=== PATIENT | female | born 1930 | race Caucasian/White ===

== ENCOUNTER → 2016-12-28 | Outpatient (CLI) | payer OTHER ==
[~2016-12-28] MED LIST: CLOPIDOGREL BISULFATE 75 MG TABLET ONE; DIAZEPAM 10 MG TABLET. ONE; EPTIFIBATIDE BOLUS 2,000 MCG/ML 10ML VIAL. IV ONE; HEPARIN SODIUM 5,000 UNIT/ML VIAL for PCVC. ONE; IODIXANOL 270 MG/ML 100 ML VIAL. ONE; IV NORMAL SALINE 500ML BAG 0 ML ONE; IV NORMAL SALINE 500ML BAG 500 ML ONE; LIDOCAINE 1% Multi-Dose 20 ML VIAL. ONE; LIDOCAINE 1%/EPI 1:100,000 20 ML VIAL. ONE; MIDAZOLAM HCL/PF 2 MG/2 ML VIAL. ONE; fentaNYL PF VIAL 100 MCG/2 ML VIAL ONE; hydrALAZINE 20 MG/ML VIAL. ONE
--- NOTE | 2016-12-28 16:19 | PCVCINTER ---
EXAM: 1. AORTOGRAM AND BILATERAL LOWER EXTREMITY RUNOFF ANGIOGRAM 2. BILATERAL RENAL ANGIOGRAPHY 3. LEFT SUPERFICIAL FEMORAL ARTERY ARTERY ATHERECTOMY AND STENT PLACEMENT. 4. SECONDARY THROMBECTOMY LEFT SUPERFICIAL FEMORAL ARTERY. 5. DRUG COATED BALLOON ANGIOPLASTY LEFT SUPERFICIAL FEMORAL AND POPLITEAL ARTERY. INDICATION: Peripheral arterial disease. Chronic arterial ischemia both feet. Leg pain. Hypertension. Renal atherosclerosis. PROCEDURE: Procedure and risks of angiography intervention is appropriate including limb loss stroke and were discussed with the patient's family and consent obtained. The patient's right groin was prepped abnormal sterile fashion. IV conscious sedation was used to procedure with appropriate monitoring from 9:00 AM through 10:30 AM. Ultrasound was used to interrogate the right groin and showed the right common femoral artery to be patent. A permanent spot film was obtained. Under ultrasound guidance access into the right common femoral artery was obtained and a 5 Gambian sheath was placed. Through this a 5 Gambian flush catheter was placed into the abdominal aorta at the level of the renal arteries and AP aortogram was performed. Catheter was positioned at the aortic bifurcation and both oblique views of the pelvis were obtained. Catheter was positioned into the right external iliac artery and right leg runoff angiography was performed. Catheter was exchanged for a visceral catheter was placed into the right renal arteries and right renal angiograms obtained. Catheter was placed into the the left renal arteries and left renal angiograms were obtained. Catheter was advanced to the level of the left external iliac artery and left leg runoff angiography was obtained. Patient was given 4000units of heparin. A 6 Gambian crossover sheath was placed via the right groin to the level of the left common femoral artery. Atherectomy of the left superficial femoral artery and upper popliteal artery was performed with 2.0 mm [employer] laser atherectomy catheter in the standard fashion. Following atherectomy small areas of thrombus were observed and because of this secondary thrombectomy throughout the left superficial femoral artery was carried out with mechanical suction thrombectomy catheter in the standard fashion. Minimal debris was removed. Following this drug coated balloon angioplasty of the left superficial femoral artery and mid and upper popliteal artery was carried out with a 5 x 120 Spectranet777 [place] Roselia Florencio CONTINUOUS ABSORPTION PROCESS OPERATOR catheter. Stent placement across the areas of high-grade stenosis in the left distal superficial femoral artery was carried out with a 6 x 60 Smart control stent with subsequent dilatation to 5.0 mm.Catheters and wires removed. Sheath was removed and hemostasis obtained using the FISH device. No immediate complications. FINDINGS: Aortogram: There is one right and one left renal artery. There is a large calcific plaque along the right lateral aspect of the mid to upper infrarenal abdominal aorta results in 60% stenosis. This is not felt to be critically flow-limiting. Pelvis: The right and left common and external iliac arteries are patent as are the internal iliac arteries. The right and left common femoral and profunda femoral arteries are patent. Right renal artery: Mild plaque proximal vessel does not cause significant stenosis. Left renal artery: Plaque proximal vessel does not cause significant stenosis. Right leg: Mid and upper superficial femoral artery show adequate patency. 80% stenosis at the junction of the superficial femoral and popliteal artery. Mid and lower popliteal arteries show good patency. The anterior tibial and posterior tibial artery arteries are occluded throughout their length. There is 90% stenosis at the origin of the tibioperoneal trunk. The peroneal artery shows satisfactory patency. Left leg: Mid and upper superficial femoral artery is patent. Distal superficial femoral artery has 70-80% stenoses as does the mid and upper popliteal artery. The anterior tibial and posterior tibial arteries are occluded throughout their length. The tibioperoneal trunk and peroneal artery shows good patency to refill the plantar arteries and dorsalis pedis. Left superficial femoral artery and popliteal artery: Following procedure as above vessel shows good patency. IMPRESSION: 60% stenosis mid to upper infrarenal abdominal aorta not felt to be critically flow-limiting. Significant distal left superficial femoral artery and upper popliteal artery stenoses were treated as above with good patency restored. Significant distal right superficial femoral artery stenoses and 90% stenosis proximal right tibioperoneal trunk. 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 follow up LOC:[place] [id number]
== END | disposition home or self-care (01) ==
LOC: PCVCINTER 07:04
PROVIDERS: ATTEND Nuclear Medicine Nuclear Cardiology
DX: I70.213 Atherosclerosis of native arteries of extremities with intermittent claudication, bilateral legs (principal); I10 Essential (primary) hypertension; I70.1 Atherosclerosis of renal artery
CPT/HCPCS: 36252; 37186; 37227; 75716; 76937; 99152; 99153; C1725; C1751; C1757; C1760; C1769; C1876; C1885; C1894; J0360; J0690; J1644; J2250; J3010; J3490; J7040; Q9966; J1327

== ENCOUNTER → 2017-01-04 | Outpatient (CLI) | payer OTHER ==
[~2017-01-04] MED LIST changes: -CLOPIDOGREL BISULFATE 75 MG TABLET ONE; +IV NORMAL SALINE 1000ML BAG 1,000 ML ONE; -IV NORMAL SALINE 500ML BAG 0 ML ONE
--- NOTE | 2017-01-04 13:37 | PCVCINTER ---
EXAM: 1. RIGHT POPLITEAL ARTERY ATHERECTOMY AND DRUG COATED BALLOON ANGIOPLASTY. 2. RIGHT TIBIOPERONEAL TRUNK ATHERECTOMY AND ANGIOSCULPT ANGIOPLASTY 3 SECONDARY THROMBECTOMY RIGHT TIBIOPERONEAL TRUNK INDICATION: Peripheral arterial disease. Rest pain and fatigue right lower extremity. Hypertension. Renal atherosclerosis. PROCEDURE: Procedure and risks of angiography intervention is appropriate including limb loss stroke and were discussed with the patient's family and consent obtained. The patient's left groin was prepped abnormal sterile fashion. IV conscious sedation was used to procedure with appropriate monitoring from 11:00 AM through 12:00 PM. Ultrasound was used to interrogate the left groin and showed the left common femoral artery to be patent. A permanent spot film was obtained. Under ultrasound guidance access into the left common femoral artery was obtained and a 6 Portuguese crossover sheath was placed via the left groin to the level of the right common femoral artery. Patient was given 4000 units of heparin. Atherectomy of the right tibioperoneal trunk was performed with 0.9 mm Spectranetics laser atherectomy catheter in the standard fashion. Atherectomy of the right popliteal artery was performed with 0.9 mm Spectranetics laser atherectomy catheter in the standard fashion. Following atherectomy small areas of thrombus were observed and because of this secondary thrombectomy throughout the right tibioperoneal trunk was carried out with mechanical suction thrombectomy catheter in the standard fashion. Minimal debris was removed. Angioplasty of the right tibioperoneal trunk was carried out with a 3.0 mm [employer] angiosculpt balloon. Following this drug coated balloon angioplasty of the right popliteal artery was carried out with a 4 x 60 SpectranetSocial[employer]horus Roselia Florencio PRODUCTION LINE SOLDERER catheter. Follow-up angiogram was performed. Catheters and wires removed. Sheath was removed and hemostasis obtained using the FISH device. No immediate complications. FINDINGS: Right popliteal artery: Following procedure as above vessel shows satisfactory patency. Right tibioperoneal trunk: Following procedure as above vessel shows good patency. IMPRESSION: Areas of significant stenosis in the right popliteal artery and right tibioperoneal trunk were treated as above with satisfactory patency restored. impression follow up LOC:[id number]
== END | disposition home or self-care (01) ==
LOC: PCVCINTER 09:23
PROVIDERS: ATTEND Nuclear Medicine Nuclear Cardiology
DX: I70.211 Atherosclerosis of native arteries of extremities with intermittent claudication, right leg (principal); I10 Essential (primary) hypertension; I70.1 Atherosclerosis of renal artery
CPT/HCPCS: 37186; 37225; 37229; 76937; 99152; 99153; C1725; C1751; C1757; C1760; C1769; C1885; C1894; J0360; J0690; J1327; J1644; J2250; J3010; J3490; J7030; J7040; 75710